=== PATIENT | female | born 1980 | race Caucasian/White ===

== ENCOUNTER 2017-03-19 16:38 | Emergency (ER) | payer SELFPAY ==
[~2017-03-19] VITALS: Ht 167.6 cm; Wt 95.2 kg
[2017-03-19 16:59] VITALS: Ht 167.6 cm; Wt 95.2 kg
[2017-03-19 19:55] VITALS: BP 129/90
== END 2017-03-19 19:55 | disposition home or self-care (01) ==
LOC: ED 16:38
DX: J11.1 Influenza due to unidentified influenza virus with other respiratory manifestations (principal)
CPT/HCPCS: 87804; J7512; J7613; J7644; Q0162